=== PATIENT | male | born 1930 | race Caucasian/White ===

== ENCOUNTER → 2017-12-10 | Outpatient (CLI) | payer MEDICARE, OTHER | END | disposition home or self-care (01) | LOC: RAH 11:19 | PROVIDERS: ATTEND Internal Medicine | DX: M47.896 Other spondylosis, lumbar region (principal); M48.061 Spinal stenosis, lumbar region without neurogenic claudication | CPT/HCPCS: 72100 ==

== ENCOUNTER 2020-08-15 09:05 | Emergency (ER) | payer MEDICARE, OTHER ==
[2020-08-15] MEDS ORDERED: METHYLPREDNISOLONE SOD SUCC 125MG/2ML VIAL ONE (09:43)
[2020-08-15] MEDS ORDERED: ALBUTEROL INHALER 90MCG/INH IH ONE (09:43)
[2020-08-15 09:47] LABS: BASOPHILS % (AUTO) 0.7 % (0.0-5.0); EOSINOPHILS % (AUTO) 7.5 % (0.0-8.0); HEMATOCRIT 38.1 % (42-54); LYMPHOCYTES % (AUTO) 34.6 % (21.0-51.0); MEAN CORPUSCULAR HEMOGLOBIN 30.2 pg (27.0-33.0); MEAN CORPUSCULAR HGB CONC 32.5 g/dL (32.0-36.0); MEAN CORPUSCULAR VOLUME 92.9 fL (79-99); MONOCYTES % (AUTO) 6.6 % (3.0-13.0); NEUTROPHILS % (AUTO) 50.3 % (40.0-77.0); PLATELET COUNT (AUTO) 312 K/uL (130-400); RED CELL DISTRIBUTION WIDTH 12.1 % (11.0-15.5); WHITE BLOOD COUNT (AUTO) 7.1 K/uL (4.8-10.8)
[2020-08-15 09:55] LABS: CREATININE 1.1 mg/dL (0.5-1.5); POTASSIUM 4.7 mmol/L (3.5-5.1)
== END 2020-08-15 14:04 | disposition home or self-care (01) ==
LOC: EDH 09:05
DX: L03.115 Cellulitis of right lower limb (principal); J98.01 Acute bronchospasm; Z20.828 Contact with and (suspected) exposure to other viral communicable diseases; I10 Essential (primary) hypertension
CPT/HCPCS: 36415; 71046; 73590; 80048; 85025; 85378; 87040; 87426; 93005; 93971; 96374; 99285; J2930; U0003

== ENCOUNTER → 2020-12-14 | Outpatient (CLI) | payer MEDICARE, OTHER | END | disposition home or self-care (01) | LOC: RAH 10:40 | PROVIDERS: ATTEND Urology | DX: N13.30 Unspecified hydronephrosis (principal); R31.29 Other microscopic hematuria | CPT/HCPCS: 76770 ==

== ENCOUNTER 2021-04-25 11:25 | Observation (INO) | payer MEDICARE, OTHER ==
[~2021-04-25] VITALS: Ht 170.2 cm; Wt 72.6 kg
[2021-04-25] VITALS (11 sets, daily range): BP systolic 69–130; BP diastolic 33–66
[2021-04-25] MEDS ORDERED: ONDANSETRON 4MG INJ ONE (11:40)
[2021-04-25] MEDS ORDERED: SOLU-MEDROL 125MG VIAL IVP ONE (12:00)
[2021-04-25] MEDS ORDERED: FAMOTIDINE 20MG VIAL IV ONE (12:00)
[2021-04-25] MEDS ORDERED: DiphenhydrAMINE HCL 50 MG/ML VIAL IV ONE (12:00)
[2021-04-25] MEDS ORDERED: PROCHLORPERAZINE EDISYLATE 5 MG/ML 2 ML VIAL IVP SCH (12:30)
[2021-04-25] MEDS ORDERED: PROCHLORPERAZINE 10MG/2ML INJ ONE (12:34)
[2021-04-25 12:59] LABS: BASOPHILS % (AUTO) 0.1 % (0.0-5.0); EOSINOPHILS % (AUTO) 0.8 % (0.0-8.0); HEMATOCRIT 42.4 % (42-54); LYMPHOCYTES % (AUTO) 27.8 % (21.0-51.0); MEAN CORPUSCULAR HEMOGLOBIN 29.9 pg (27.0-33.0); MEAN CORPUSCULAR HGB CONC 32.5 g/dL (32.0-36.0); PLATELET COUNT (AUTO) 311 K/uL (130-400); RED BLOOD CELL COUNT(AUTO) 4.61 MIL/uL (4.50-6.20); RED CELL DISTRIBUTION WIDTH 13.2 % (11.0-15.5); WHITE BLOOD COUNT (AUTO) 15.9 K/uL (4.8-10.8)
[2021-04-25 13:08] LABS: CREATININE 1.2 mg/dL (0.5-1.5); POTASSIUM 3.7 mmol/L (3.5-5.1)
[2021-04-25 13:09] LABS: INR 1.05 (0.85-1.15); PROTHROMBIN TIME 11.4 SEC (9.6-11.6)
[2021-04-25 13:19] LABS: B-TYPE NATRIURETIC PEPTIDE 7 pg/mL (0-100)
[2021-04-25 13:22] LABS: ALBUMIN 3.3 g/dL (3.5-5.0); BILIRUBIN,TOTAL 0.4 mg/dL (0.2-1.0); TOTAL PROTEIN, SERUM 6.5 g/dL (6.0-8.3); TROPONIN I 0.06 ng/mL (0.00-0.06)
[2021-04-25] MEDS ORDERED: ACETAMINOPHEN 500 MG TABLET PO SCH (14:00)
[2021-04-25] MEDS ORDERED: ACETAMINOPHEN 325 MG TAB PO PRN ×2 (15:00)
[2021-04-25] MEDS ORDERED: ONDANSETRON 4MG INJ IV PRN (15:00)
[2021-04-25 15:28] LABS: HEMOGLOBIN A1C 6.3 % (4.0-6.0)
[2021-04-25 15:47] LABS: TROPONIN I 0.15 ng/mL (0.00-0.06)
[2021-04-25] MEDS: SOLU-MEDROL 40MG VIAL IVP SCH ×2 (17:33→23:07)
[2021-04-25] MEDS: 0.9%NACL 1000ML 1,000 ML IV SCH ×2 (17:34→22:50)
[2021-04-25] MEDS ORDERED: SIMV-43 PO (18:33)
[2021-04-25] MEDS ORDERED: ASPI-1197 PO (18:33)
[2021-04-25] MEDS ORDERED: FINA5TAB41 PO (18:33)
[2021-04-25] MEDS ORDERED: MV-M1TAB20 PO (18:33)
[2021-04-25] MEDS ORDERED: TIMO1DRO5 OP (18:33)
[2021-04-25] MEDS ORDERED: MULT-1258 PO (18:33)
[2021-04-25] MEDS ORDERED: AMLO2.5T2 PO (18:33)
[2021-04-25] MEDS ORDERED: FAMOTIDINE 20MG VIAL IV SCH (21:00)
[2021-04-25] MEDS: DiphenhydrAMINE HCL 50 MG/ML VIAL IV SCH (23:07)
[2021-04-25 23:10] LABS: TROPONIN I 0.09 ng/mL (0.00-0.06)
[2021-04-26] VITALS: BP 126/50
[2021-04-26 01:00] VITALS: BP 111/61
[2021-04-26] MEDS: DiphenhydrAMINE HCL 50 MG/ML VIAL IV SCH (06:00)
[2021-04-26 07:57] LABS: CREATINE KINASE, TOTAL 39 U/L (21-232); MYOGLOBIN 85 ng/mL (10-92); TROPONIN I < 0.04 ng/mL (0.00-0.06)
[2021-04-26 08:00] VITALS: BP 123/53
[2021-04-26 08:36] LABS: CHOLESTEROL 172 mg/dL (<200); HDL CHOLESTEROL 68 mg/dL (29-71); LDL DIRECT 88 mg/dL (0-99); TRIGLYCERIDES 52 mg/dL (30-200)
[2021-04-26 09:00] VITALS: BP 151/62
[2021-04-26] MEDS ORDERED: FAMOTIDINE 20MG VIAL IV SCH (09:00)
[2021-04-26] MEDS ORDERED: ASPIRIN 325 MG TABLET PO SCH (09:00)
[2021-04-26] MEDS ORDERED: ENOXAPARIN SODIUM 40 MG/0.4 ML SYRINGE SQ SCH (09:00)
[2021-04-26 09:02] LABS: BASOPHILS % (AUTO) 0.2 % (0.0-5.0); HEMATOCRIT 37.2 % (42-54); LYMPHOCYTES % (AUTO) 9.8 % (21.0-51.0); MEAN CORPUSCULAR HEMOGLOBIN 30.3 pg (27.0-33.0); MEAN CORPUSCULAR HGB CONC 32.8 g/dL (32.0-36.0); MEAN CORPUSCULAR VOLUME 92.3 fL (79-99); MONOCYTES % (AUTO) 1.8 % (3.0-13.0); NEUTROPHILS % (AUTO) 86.7 % (40.0-77.0); PLATELET COUNT (AUTO) 260 K/uL (130-400); RED BLOOD CELL COUNT(AUTO) 4.03 MIL/uL (4.50-6.20); RED CELL DISTRIBUTION WIDTH 13.2 % (11.0-15.5); WHITE BLOOD COUNT (AUTO) 17.6 K/uL (4.8-10.8)
[2021-04-26 09:07] LABS: CREATININE 1.2 mg/dL (0.5-1.5); POTASSIUM 4.5 mmol/L (3.5-5.1)
[2021-04-26] MEDS ORDERED: EPIN0.3P19 IJ (10:12)
[2021-04-26] MEDS: 0.9%NACL 1000ML 1,000 ML IV SCH ×3 (11:00→12:30)
[2021-04-26 12:00] VITALS: BP 135/64
[2021-04-26] MEDS ORDERED: PROCHLORPERAZINE 10MG/2ML INJ IVP SCH (12:30)
== END 2021-04-26 15:15 | disposition home or self-care (01) ==
LOC: EDH 11:25 → EDHIP 14:52 → 3DH 04-26 10:04
PROVIDERS: ADMIT Internal Medicine; ATTEND Internal Medicine
DX: T63.441A Toxic effect of venom of bees, accidental (unintentional), initial encounter (principal); T78.2XXA Anaphylactic shock, unspecified, initial encounter; I10 Essential (primary) hypertension; I95.9 Hypotension, unspecified; R94.31 Abnormal electrocardiogram [ECG] [EKG]; E78.5 Hyperlipidemia, unspecified; N40.0 Benign prostatic hyperplasia without lower urinary tract symptoms; H40.9 Unspecified glaucoma; Z79.82 Long term (current) use of aspirin; Z79.899 Other long term (current) drug therapy; Z98.890 Other specified postprocedural states; Y93.89 Activity, other specified; Y92.89 Other specified places as the place of occurrence of the external cause; Y99.8 Other external cause status
CPT/HCPCS: 36415 ×2; 71045; 80048; 80053; 80061; 82550 ×4; 82948; 83036; 83605; 83874 ×4; 83880; 84145; 84484 ×4; 85025 ×2; 85610; 93005 ×5; 96361 ×4; 96374; 96375; 96376; 99291; G0378 ×24; J0780; J1200; J2405; J2920